=== PATIENT | female | born 1965 | race African-American/Black ===

== ENCOUNTER 2018-12-28 16:14 | Inpatient (IN) | payer OTHER ==
[2018-12-28 20:29] VITALS: BMI 25.6
--- NOTE | 2018-12-28 21:12 | HP ---
CIWA Score - Admission Criteria [facility]ASAS Guidelines: Admission for Medically Managed Detox: Requires at least one of the followin. CIWA greater than 12 2. Seizures within the past 24 hours 3. Delirium tremens within the past 24 hours 4. Hallucinations within the past 24 hours 5. Acute intervention needed for co occurring medical disorder 6. Acute intervention needed for co occurring psychiatric disorder 7. Severe withdrawal that cannot be handled at a lower level of care (continued vomiting, continued diarrhea, abnormal vital signs) requiring intravenous medication and/or fluids 8. Admission ROS S - HPI Chief Complaint: seeking rehab after detox Allergies/Adverse Reactions: Allergies Allergy/AdvReac Type Severity Reaction Status Date / Time No Known Allergies Allergy Verified 12/28/18 20:09 History of Present Illness: 53 Y.O. AA FEMALE REFERRED BY [facility] AFTER COMPLETING ALCOHOL DETOX. CLIENT WAS THERE FOR THE PAST 4 DAYS. DC TODAY HERE FOR REHAB. SHE REPORTS A LONG HX/O ALCOHOL DEPENDENCE. DRINKING DAILY UNTIL 4 DAYS AGO. + [employer], BLACK OUTS,. DENIES SI/ HI/AVH, SEIZURES. REPORTS MOST RECENT CLEAN TIME 6 MONTHS RELAPSING 3 WEEKS AGO. LIVES IN A PENITENTIARY, SSI, DENIES LEGALS Exam Limitations: No Limitations - Ebola screening Have you traveled outside of the country in the last 21 days: No Have you had contact with anyone from an Ebola affected area: No Have you been sick,other than usual withdrawal symptoms: No Do you have a fever: No - Review of Systems Constitutional: Night Sweats EENT: reports: Eye Pain (R/T MIGRAINES), Dental Problems (MISSING TEETH) Respiratory: reports: No Symptoms reported Cardiac: reports: No Symptoms Reported GI: reports: No Symptoms Reported : reports: Frequency, Incontinence, Urgency Musculoskeletal: reports: No Symptoms Reported Integumentary: reports: No Symptoms Reported Neuro: reports: Headache (MIGRAINES), Other (BLACK OUTS) Endocrine: reports: No Symptoms Reported Hematology: reports: Anemia (CHRONIC) Psychiatric: reports: Orientated x3, Anxious Other Systems: Reviewed and Negative Patient History - Patient Medical History Hx Anemia: Yes Hx Asthma: Yes Hx Chronic Obstructive Pulmonary Disease (COPD): Yes Hx Cancer: No Hx Cardiac Disorders: No Hx Congestive Heart Failure: No Hx Hypertension: Yes Hx Hypercholesterolemia: No Hx Pacemaker: No HX Cerebrovascular Accident: No Hx Seizures: No Hx Dementia: No Hx Diabetes: No Hx Gastrointestinal Disorders: No Hx Liver Disease: No Hx Genitourinary Disorders: No Hx Sexually Transmitted Disorders: No Hx Renal Disease (ESRD): No Hx Thyroid Disease: No Hx Human Immunodeficiency Virus (HIV): No Hx Hepatitis C: No Hx Depression: Yes (HX) Hx Suicide Attempt: No Hx Bipolar Disorder: Yes (SCHIZOAFFECTIVE) Hx Schizophrenia: No Other Medical History: ANXIETY - Patient Surgical History Past Surgical History: Yes Hx Hysterectomy: Yes (2010) Anesthesia Reaction: No - PPD History Previous Implant?: Yes Documented Results: Negative w/o proof Implanted On Prior R Admission?: No PPD to be Administered?: Yes - Reproductive History Patient is a Female of Child Bearing Age (11 -55 yrs old): Yes LMP comment: MENAPAUSE Patient : No (NEG [facility]) - Smoking Cessation Smoking history: Current every day smoker Have you smoked in the past 12 months: Yes Aproximately how many cigarettes per day: 20 Cigars Per Day: 0 Hx Chewing Tobacco Use: No Initiated information on smoking cessation: Yes 'Breaking Loose' booklet given: 12/28/18 - Substance & Tx. History Hx Alcohol Use: Yes Hx Substance Use: Yes Substance Use Type: Alcohol Hx Substance Use Treatment: Yes ([facility]) - Substances abused Alcohol Substance route: Oral Frequency: Daily Amount used: $20-$30 Age of first use: 12 Date of last use: 12/24/18 Cocaine Substance route: Smoking Frequency: Daily Amount used: $20 Age of first use: 29 Date of last use: 12/24/18 Admission Physical Exam [facility]HS - Vital Signs Vital Signs: Vital Signs - 24 hr 12/28/18 20:01 Temperature 97.7 F Pulse Rate 123 H Respiratory 20 Rate Blood Pressure 117/76 - Physical General Appearance: Yes: No Apparent Distress, Anxious HEENTM: Yes: EOMI, Normocephalic, Normal Voice, ROSA M, Pharynx Normal, Other ( POOR DENTITION WITH MISSING TEETH) Respiratory: Yes: Chest Non-Tender, Lungs Clear, Normal Breath Sounds, No Respiratory Distress, No Accessory Muscle Use Neck: Yes: No masses,lesions,Nodules, Supple, Trachea in good position Breast: Yes: Breast Exam Deferred Cardiology: Yes: Regular Rhythm, S1, S2, Tachycardia Abdominal: Yes: Normal Bowel Sounds, Non Tender, Soft Genitourinary: Yes: Within Normal Limits Back: Yes: Normal Inspection Musculoskeletal: Yes: full range of Motion, Gait Steady Extremities: Yes: Normal Capillary Refill, Normal Range of Motion, Non-Tender Neurological: Yes: Fully Oriented, Alert, Motor Strength 5/5 Integumentary: Yes: Dry, Warm Lymphatic: Yes: Within Normal Limits - Diagnostic (1) Alcohol dependence, uncomplicated Current Visit: Yes Status: Acute (2) Asthma Current Visit: Yes Status: Acute (3) HTN (hypertension) Current Visit: Yes Status: Acute (4) Nicotine dependence Current Visit: Yes Status: Acute (5) Chronic anemia Current Visit: Yes Status: Acute (6) Substance induced mood disorder Current Visit: Yes Status: Acute Cleared for Admission BHS - Detox or Rehab Detox Regimen/Protocol: Not Applicable Claeared for Rehab Admission: Yes Breathalyzer - Breathalyzer Breathalyzer: 0 Urine Drug Screen - Test Device Lot number: [id number] Expiration date: 08/20/20 - Control Is test valid?: Yes - Results Drug screen NEGATIVE: No Urine drug screen results: BZO-Benzodiazepines Inpatient Rehab Admission - Rehab Decision to Admit Inpatient rehab admission?: Yes - Initial Determination Are CD services needed?: Yes Free of communicable disease: Yes Not in need of hospitalization: Yes - Rehab Admission Criteria Previous failed treatment: Yes Poor recovery environment: Yes Comorbidities: Yes Lacks judgement: No Patient is meeting Inpatient Rehab admission criteria:: Yes
[2018-12-28] MEDS ORDERED: ALBUTEROL SO4 8 GM HFA INHALER IH SCH ×2 (21:15→21:17)
[2018-12-28] MEDS ORDERED: ACETAMINOPHEN 325 MG TABLET (FP) PO PRN (21:16)
[2018-12-28] MEDS ORDERED: MAG HYDROX/AL HYDROX/SIMETH 30 ML UNIT-DOSE CUP PO PRN (21:16)
[2018-12-28] MEDS ORDERED: guaiFENesin 200 MG/10 ML 10 ML UNIT-DOSE CUPS PO PRN (21:16)
[2018-12-28] MEDS ORDERED: MENTHOL/PHENOL 1 EACH UD MM PRN (21:16)
[2018-12-28] MEDS ORDERED: P-EPHED 60MG/TRIPROLIDI 2.5MG TABLET PO PRN (21:16)
[2018-12-28] MEDS ORDERED: MAGNESIUM HYDROX 2400MG/30ML ORAL SUSPENSION 30 ML CUP PO PRN (21:16)
[2018-12-28] MEDS ORDERED: LOPERAMIDE HCL 2 MG CAPSULE PO PRN (21:16)
[2018-12-28] MEDS ORDERED: MAGNESIUM CITRATE 300 ML BOTTLE PO PRN (21:16)
[2018-12-28] MEDS ORDERED: ALBUTEROL SO4 8 GM HFA INHALER IH PRN (21:18)
[2018-12-28] MEDS ORDERED: TUBERCULIN PPD 5 TU/0.1ML VIAL ID ONE (22:32)
[2018-12-28] MEDS: THIAMINE HCL 100 MG TABLET (FP) PO SCH (22:49)
[2018-12-28] MEDS: hydrOXYzine PAMOATE 50 MG CAPSULE (FP) PO PRN (22:49)
[2018-12-28] MEDS: MELATONIN 5 MG TABLETS PO PRN (22:49)
[2018-12-29] MEDS ORDERED: ONDANSETRON *ODT* 4 MG TABLET SL PRN (08:30)
[2018-12-29] MEDS: NICOTINE POLACRILEX 4 MG GUM BUC PRN (08:56)
[2018-12-29] MEDS: NICOTINE 21 MG/24 HOURS TOPICAL PATCH TD SCH (09:15)
[2018-12-29] MEDS: LISINOPRIL 10 MG TABLET (FP) PO SCH (09:15)
[2018-12-29] MEDS: PRENATAL VITAMINS W/ FOLIC ACID TABLET (FP) PO SCH (09:15)
--- NOTE | 2018-12-29 10:52 | CONSULT ---
[facility] Psychiatric Consult - Data Date of interview: 12/29/18 Admission source: [facility] Identifying data: Patient is a 53 year old female, mother of four, unemployed, homeless, and is currently supported by [facility]. This is patient's first admission to rehab at [facility]. Patient admitted to for alcohol and cocaine dependence. Substance Abuse History: Smoking Cessation. Smoking history: Current every day smoker. Have you smoked in the past 12 months: Yes. Aproximately how many cigarettes per day: 20. Cigars Per Day: 0. Hx Chewing Tobacco Use: No. Initiated information on smoking cessation: Yes. 'Breaking Loose' booklet given : 12/28/18. - Substance & Tx. History. Hx Alcohol Use: Yes. Hx Substance Use : Yes. Substance Use Type: Alcohol. Hx Substance Use Treatment: Yes ([facility]). - Substances abused. Alcohol. Substance route: Oral. Frequency : Daily. Amount used: $20-$30. Age of first use: 12. Date of last use: . Cocaine. Substance route: Smoking. Frequency: Daily. Amount used: $ 20. Age of first use: 29. Date of last use: 12/24/18 Medical History: Anemia, Asthma, Hypertension, Hysterectomy Psychiatric History: Patient's first psychiatric contact was as a child due to behavior disturbances. She was diagnosed with ADHD and prescribed Ritalin. As an adult Ms. Solitario reports history of multiple psychiatric hospitalizations. Her first hospitalization occured at 25 years of age while living in [place] after feeling depressed secondary to her divorce. She was admitted to [facility] and diagnosed with Bipolar disorder. Reports being tried on lithium, risperdal, wellbutrin, prozac and seroquel. Approximately 1-2 years after her first psychiatric admission she was admitted again to [facility] secondary to attempting to drown herself in a bathtub. Her diagnosis was revised to Schizoaffective disorder and reports being prescribed prozac + seroquel. She reports subsequent admissions but is unable to recall specific dates. Ms. Solitario's most recent psychiatric hospitalization was at [facility] in January of 2018 after attempting to jump in front of a train and reports being prescribed risperdal, depakote, and trazodone. States that risperdal causes her to grind her teeth and is noncompliant with depakote. She denies current outpatient psychiatric care. Reports receiving psychotropic medications from emergency rooms in [facility], most recently seroquel 100mg HS+ Seroquel 25mg daily. Patient denies auditory/visual hallucinations and suicidal/ homicidal ideation. At present patient is restless, talkative but in good control. Physical/Sexual Abuse/Trauma History: history of trauma but refuses to elaborate. Mental Status Exam - Mental Status Exam Alert and Oriented to: Time, Place, Person Cognitive Function: Good Patient Appearance: Well Groomed Mood: Euthymic Affect: Mood Congruent Patient Behavior: Cooperative Speech Pattern: Clear (Patient is talktative) Voice Loudness: Normal Thought Process: Goal Oriented Thought Disorder: Not Present Hallucinations: Denies Suicidal Ideation: Denies Homicidal Ideation: Denies Insight/Judgement: Poor Sleep: Poorly Appetite: Fair Muscle strength/Tone: Normal Gait/Station: Normal Psychiatric Findings - Problem List (Flat Top 1, 2,3) (1) Bipolar disorder Current Visit: Yes Status: Chronic (2) Alcohol dependence, uncomplicated Current Visit: Yes Status: Acute (3) Nicotine dependence Current Visit: Yes Status: Acute (4) Substance-induced sleep disorder Current Visit: Yes Status: Acute - Initial Treatment Plan Initial Treatment Plan: Psychoeducation provided. Rehab in progress. Valeriano Islas contacted at [phone] and Dedirck Houser contacted at [phone] and able to speak to pharmacist at both pharmacies. As per pharmacist from both locations patient does not have psychotropic medications on file. Will order Seroquel 100mg HS. Benefits and side effects discussed. Verbal consent given.
[2018-12-29 11:57] LABS: URINE APPEARANCE CLEAR; URINE BILIRUBIN NEGATIVE (NEGATIVE); URINE COLOR YELLOW; URINE GLUCOSE (UA) NEGATIVE (NEGATIVE); URINE KETONE NEGATIVE (NEGATIVE); URINE LEUK ESTERASE NEGATIVE (NEGATIVE); URINE NITRITE NEGATIVE (NEGATIVE); URINE PROTEIN NEGATIVE (NEGATIVE); URINE UROBILINOGEN 0.2 mg/dL (0.2-1.0)
[2018-12-29 12:27] LABS: HEMATOCRIT 34.1 % (32.4-45.2); HEMOGLOBIN 10.9 GM/dL (10.7-15.3); MCHC 32.1 g/dl (32.0-36.0); MEAN CELL VOLUME 77.6 fl (80-96); MEAN PLT VOLUME 9.4 fl (7.5-11.1); PLATELET COUNT 294 K/MM3 (134-434); RBC 4.39 M/mm3 (3.60-5.2); RDW 14.9 % (11.6-15.6); WHITE BLOOD COUNT 4.7 K/mm3 (4.0-10.0)
[2018-12-29 12:33] LABS: ALBUMIN 4.1 g/dl (3.4-5.0); BILIRUBIN,TOTAL 0.2 mg/dL (0.2-1); BLOOD UREA NITROGEN 21.8 mg/dL (7-18); CALCIUM 9.7 mg/dL (8.5-10.1); CREATININE 0.9 mg/dL (0.55-1.3); POTASSIUM 4.3 mmol/L (3.5-5.1)
[2018-12-29] MEDS: hydrOXYzine PAMOATE 50 MG CAPSULE (FP) PO PRN (13:29)
--- NOTE | 2018-12-29 13:35 | EKG ---
Test Reason : Blood Pressure : / mmHG Vent. Rate : 097 BPM Atrial Rate : 097 BPM P-R Int : 136 ms QRS Dur : 078 ms QT Int : 340 ms P-R-T Axes : 076 066 070 degrees QTc Int : 431 ms NORMAL SINUS RHYTHM POSSIBLE LEFT ATRIAL ENLARGEMENT POOR R WAVE PROGRESSION NO PREVIOUS ECGS AVAILABLE Confirmed by DINESH LAW MD ([id number]) on 12/29/2018 1:34:45 PM Referred By: Confirmed By:DINESH LAW MD
[2018-12-29] MEDS: MELATONIN 5 MG TABLETS PO PRN (21:57)
[2018-12-29] MEDS: QUEtiapine FUMARATE 100 MG TABLET (FP) PO SCH (21:57)
[2018-12-29] MEDS: THIAMINE HCL 100 MG TABLET (FP) PO SCH (21:57)
[2018-12-30] MEDS: PRENATAL VITAMINS W/ FOLIC ACID TABLET (FP) PO SCH (10:09)
[2018-12-30] MEDS: LISINOPRIL 10 MG TABLET (FP) PO SCH (10:09)
[2018-12-30] MEDS: NICOTINE POLACRILEX 4 MG GUM BUC PRN (10:10)
[2018-12-30] MEDS: NICOTINE 21 MG/24 HOURS TOPICAL PATCH TD SCH (10:10)
[2018-12-30] MEDS: hydrOXYzine PAMOATE 50 MG CAPSULE (FP) PO PRN (10:11)
[2018-12-30] MEDS: MELATONIN 5 MG TABLETS PO PRN (21:19)
[2018-12-30] MEDS: THIAMINE HCL 100 MG TABLET (FP) PO SCH (21:19)
[2018-12-30] MEDS: QUEtiapine FUMARATE 100 MG TABLET (FP) PO SCH (21:19)
[2018-12-31] MEDS: NICOTINE POLACRILEX 4 MG GUM BUC PRN (08:30)
[2018-12-31] MEDS: LISINOPRIL 10 MG TABLET (FP) PO SCH (10:08)
[2018-12-31] MEDS: PRENATAL VITAMINS W/ FOLIC ACID TABLET (FP) PO SCH (10:08)
[2018-12-31] MEDS: NICOTINE 21 MG/24 HOURS TOPICAL PATCH TD SCH (10:08)
[2018-12-31] MEDS: hydrOXYzine PAMOATE 50 MG CAPSULE (FP) PO PRN ×3 (10:10→21:10)
[2018-12-31] MEDS: IBUPROFEN 400 MG TABLET (FP) PO PRN (18:03)
[2018-12-31] MEDS: THIAMINE HCL 100 MG TABLET (FP) PO SCH (21:10)
[2018-12-31] MEDS: QUEtiapine FUMARATE 100 MG TABLET (FP) PO SCH (21:10)
[2018-12-31] MEDS: MELATONIN 5 MG TABLETS PO PRN (21:10)
[2019-01-01] MEDS: NICOTINE 21 MG/24 HOURS TOPICAL PATCH TD SCH (10:06)
[2019-01-01] MEDS: LISINOPRIL 10 MG TABLET (FP) PO SCH (10:06)
[2019-01-01] MEDS: PRENATAL VITAMINS W/ FOLIC ACID TABLET (FP) PO SCH (10:06)
[2019-01-01] MEDS: NICOTINE POLACRILEX 4 MG GUM BUC PRN (10:07)
[2019-01-01] MEDS: IBUPROFEN 400 MG TABLET (FP) PO PRN ×2 (12:55→21:47)
--- NOTE | 2019-01-01 14:14 | PN ---
[facility] Progress Note Note: PATIENT C/O BRUISE TO LEFT FOREARM. STATES SHE HAS MILD DISCOMFORT 04/30, NON- RADIATING. NO RECENT INJURIES. Vital Signs Temperature 97.9 F 01/01/19 07:30 Pulse Rate 97 H 01/01/19 07:30 Respiratory Rate 18 01/01/19 07:30 Blood Pressure 145/85 01/01/19 07:30 O2 Sat by Pulse Oximetry (%) Laboratory Tests 12/29/18 12/29/18 12/29/18 08:20 08:25 08:25 WBC 4.7 RBC 4.39 Hgb 10.9 Hct 34.1 MCV 77.6 L MCH 25.0 L MCHC 32.1 RDW 14.9 Plt Count 294 MPV 9.4 Sodium 136 Potassium 4.3 Chloride 98 Carbon Dioxide 34 H Anion Gap 5 L BUN 21.8 H Creatinine 0.9 Est GFR (CKD-EPI)AfAm 83.43 Est GFR (CKD-EPI)NonAf 71.98 Random Glucose 110 H Calcium 9.7 Total Bilirubin 0.2 AST 14 L ALT 18 Alkaline Phosphatase 65 Total Protein 8.0 Albumin 4.1 Urine Color Yellow Urine Appearance Clear Urine pH 7.0 Ur Specific [place] 1.020 Urine Protein Negative Urine Glucose (UA) Negative Urine Ketones Negative Urine Blood Negative Urine Nitrite Negative Urine Bilirubin Negative Urine Urobilinogen 0.2 Ur Leukocyte Esterase Negative RPR Titer 12/29/18 08:25 WBC RBC Hgb Hct MCV MCH MCHC RDW Plt Count MPV Sodium Potassium Chloride Carbon Dioxide Anion Gap BUN Creatinine Est GFR (CKD-EPI)AfAm Est GFR (CKD-EPI)NonAf Random Glucose Calcium Total Bilirubin AST ALT Alkaline Phosphatase Total Protein Albumin Urine Color Urine Appearance Urine pH Ur Specific [place] Urine Protein Urine Glucose (UA) Urine Ketones Urine Blood Urine Nitrite Urine Bilirubin Urine Urobilinogen Ur Leukocyte Esterase RPR Titer Nonreactive PE: ALERT AND ORIENTED X 3 SKIN WARM AND DRY +PERRLA, EOMS INTACT BL EXT FULL ROM, AMB AD JEF B/L UES FULL ROM, LEFT RADIAL PULSE + LEFT FINGERS WITH BRISK CAP REFILL +ROM OF LEFT ARM A/P; ECCHYMOSIS TO LEFT FOREARM CONTINUE IBU PRN FOR DISCOMFORT MONITOR CLINICALLY IF PAIN CONTINUES, DO XRAY
[2019-01-01] MEDS: QUEtiapine FUMARATE 100 MG TABLET (FP) PO SCH (21:46)
[2019-01-01] MEDS: THIAMINE HCL 100 MG TABLET (FP) PO SCH (21:46)
[2019-01-01] MEDS: hydrOXYzine PAMOATE 50 MG CAPSULE (FP) PO PRN (21:46)
[2019-01-02] MEDS: hydrOXYzine PAMOATE 50 MG CAPSULE (FP) PO PRN ×2 (10:16→21:49)
[2019-01-02] MEDS: NICOTINE 21 MG/24 HOURS TOPICAL PATCH TD SCH (10:16)
[2019-01-02] MEDS: PRENATAL VITAMINS W/ FOLIC ACID TABLET (FP) PO SCH (10:16)
[2019-01-02] MEDS: LISINOPRIL 10 MG TABLET (FP) PO SCH (10:16)
[2019-01-02] MEDS: IBUPROFEN 400 MG TABLET (FP) PO PRN ×2 (10:17→21:48)
[2019-01-02] MEDS: THIAMINE HCL 100 MG TABLET (FP) PO SCH (21:49)
[2019-01-02] MEDS: QUEtiapine FUMARATE 100 MG TABLET (FP) PO SCH (21:49)
[2019-01-03] MEDS: LISINOPRIL 10 MG TABLET (FP) PO SCH (09:36)
[2019-01-03] MEDS: NICOTINE 21 MG/24 HOURS TOPICAL PATCH TD SCH (09:36)
[2019-01-03] MEDS: PRENATAL VITAMINS W/ FOLIC ACID TABLET (FP) PO SCH (09:36)
[2019-01-03] MEDS: hydrOXYzine PAMOATE 50 MG CAPSULE (FP) PO PRN (09:37)
[2019-01-03] MEDS ORDERED: DOCUSATE SODIUM 100 MG CAPSULE (FP) PO ONE (11:00)
--- NOTE | 2019-01-03 11:03 | PN ---
[facility] Progress Note Note: c/o hard stool and requesting stool softner. Vital Signs - 24 hr 01/03/19 01/03/19 01/03/19 00:30 03:30 07:18 Temperature 97.3 F L Pulse Rate 80 Respiratory 16 16 18 Rate Blood Pressure 129/80 01/03/19 09:36 Temperature Pulse Rate 90 Respiratory Rate Blood Pressure 134/77 Laboratory Tests 12/28/18 12/29/18 12/29/18 20:43 08:20 08:25 WBC 4.7 RBC 4.39 Hgb 10.9 Hct 34.1 MCV 77.6 L MCH 25.0 L MCHC 32.1 RDW 14.9 Plt Count 294 MPV 9.4 Sodium Potassium Chloride Carbon Dioxide Anion Gap BUN Creatinine Est GFR (CKD-EPI)AfAm Est GFR (CKD-EPI)NonAf Random Glucose Calcium Total Bilirubin AST ALT Alkaline Phosphatase Total Protein Albumin Urine Color Yellow Urine Appearance Clear Urine pH 7.0 Ur Specific [place] 1.020 Urine Protein Negative Urine Glucose (UA) Negative Urine Ketones Negative Urine Blood Negative Urine Nitrite Negative Urine Bilirubin Negative Urine Urobilinogen 0.2 Ur Leukocyte Esterase Negative POC Urine HCG, Qual Negative RPR Titer 12/29/18 12/29/18 08:25 08:25 WBC RBC Hgb Hct MCV MCH MCHC RDW Plt Count MPV Sodium 136 Potassium 4.3 Chloride 98 Carbon Dioxide 34 H Anion Gap 5 L BUN 21.8 H Creatinine 0.9 Est GFR (CKD-EPI)AfAm 83.43 Est GFR (CKD-EPI)NonAf 71.98 Random Glucose 110 H Calcium 9.7 Total Bilirubin 0.2 AST 14 L ALT 18 Alkaline Phosphatase 65 Total Protein 8.0 Albumin 4.1 Urine Color Urine Appearance Urine pH Ur Specific [place] Urine Protein Urine Glucose (UA) Urine Ketones Urine Blood Urine Nitrite Urine Bilirubin Urine Urobilinogen Ur Leukocyte Esterase POC Urine HCG, Qual RPR Titer Nonreactive labs noted. Low H/H A/P Hx Anemia constipation Alert o x 3 nad oob ambulating with steady gait Increase po fluids colace 100 mg po tid feosol 325 mg po daily D/w pt to report to staff if constipation persists. will order dulcolax
[2019-01-03] MEDS: FERROUS SO4 325 MG TABLET (FP) PO SCH (12:32)
[2019-01-03] MEDS: DOCUSATE SODIUM 100 MG CAPSULE (FP) PO SCH ×2 (13:47→21:38)
[2019-01-03] MEDS ORDERED: COLLOIDAL OATMEAL 1 BAR EACH TP PRN (14:50)
[2019-01-03] MEDS: MELATONIN 5 MG TABLETS PO PRN (21:37)
[2019-01-03] MEDS: THIAMINE HCL 100 MG TABLET (FP) PO SCH (21:37)
[2019-01-03] MEDS: QUEtiapine FUMARATE 100 MG TABLET (FP) PO SCH (21:38)
[2019-01-04] MEDS: DOCUSATE SODIUM 100 MG CAPSULE (FP) PO SCH ×2 (06:35→21:22)
[2019-01-04] MEDS: FERROUS SO4 325 MG TABLET (FP) PO SCH (10:09)
[2019-01-04] MEDS: PRENATAL VITAMINS W/ FOLIC ACID TABLET (FP) PO SCH (10:09)
[2019-01-04] MEDS: NICOTINE 21 MG/24 HOURS TOPICAL PATCH TD SCH (10:09)
[2019-01-04] MEDS: LISINOPRIL 10 MG TABLET (FP) PO SCH (10:09)
[2019-01-04] MEDS: NICOTINE POLACRILEX 4 MG GUM BUC PRN ×2 (10:10→17:01)
[2019-01-04] MEDS: QUEtiapine FUMARATE 100 MG TABLET (FP) PO SCH (21:21)
[2019-01-04] MEDS: THIAMINE HCL 100 MG TABLET (FP) PO SCH (21:21)
[2019-01-04] MEDS: hydrOXYzine PAMOATE 50 MG CAPSULE (FP) PO PRN (21:21)
[2019-01-05] MEDS: LISINOPRIL 10 MG TABLET (FP) PO SCH (10:08)
[2019-01-05] MEDS: FERROUS SO4 325 MG TABLET (FP) PO SCH (10:08)
[2019-01-05] MEDS: PRENATAL VITAMINS W/ FOLIC ACID TABLET (FP) PO SCH (10:08)
[2019-01-05] MEDS: NICOTINE 21 MG/24 HOURS TOPICAL PATCH TD SCH (10:09)
[2019-01-05] MEDS: hydrOXYzine PAMOATE 50 MG CAPSULE (FP) PO PRN (21:15)
[2019-01-05] MEDS: THIAMINE HCL 100 MG TABLET (FP) PO SCH (21:15)
[2019-01-05] MEDS: DOCUSATE SODIUM 100 MG CAPSULE (FP) PO SCH (21:15)
[2019-01-05] MEDS: MELATONIN 5 MG TABLETS PO PRN (21:15)
[2019-01-05] MEDS: QUEtiapine FUMARATE 100 MG TABLET (FP) PO SCH (21:15)
[2019-01-06 07:08] VITALS: TEMP 97.9
[2019-01-06 09:12] VITALS: BP 123/85; PULSE 106
[2019-01-06] MEDS: LISINOPRIL 10 MG TABLET (FP) PO SCH (10:05)
[2019-01-06] MEDS: FERROUS SO4 325 MG TABLET (FP) PO SCH (10:05)
[2019-01-06] MEDS: NICOTINE 21 MG/24 HOURS TOPICAL PATCH TD SCH (10:06)
[2019-01-06] MEDS: PRENATAL VITAMINS W/ FOLIC ACID TABLET (FP) PO SCH (10:06)
[2019-01-06] MEDS: NICOTINE POLACRILEX 4 MG GUM BUC PRN (10:06)
--- NOTE | 2019-01-06 15:21 | DS ---
[facility] Rehab Discharge Summary - [facility] Rehab Discharge Summary Admission Date: 12/28/18 Discharge Date: 01/06/19 - Discharge Physical Exam Vital Signs: Vital Signs Temperature 97.9 F 01/06/19 07:08 Pulse Rate 106 H 01/06/19 09:12 Respiratory Rate 18 01/06/19 09:12 Blood Pressure 123/85 01/06/19 09:12 O2 Sat by Pulse Oximetry (%) Pertinent Admission Physical Exam Findings: Laboratory Last Values WBC 4.7 K/mm3 (4.0-10.0) 12/29/18 08:25 RBC 4.39 M/mm3 (3.60-5.2) 12/29/18 08:25 Hgb 10.9 GM/dL (10.7-15.3) 12/29/18 08:25 Hct 34.1 % (32.4-45.2) 12/29/18 08:25 MCV 77.6 fl (80-96) L 12/29/18 08:25 MCH 25.0 pg (25.7-33.7) L 12/29/18 08:25 MCHC 32.1 g/dl (32.0-36.0) 12/29/18 08:25 RDW 14.9 % (11.6-15.6) 12/29/18 08:25 Plt Count 294 K/MM3 (134-434) 12/29/18 08:25 MPV 9.4 fl (7.5-11.1) 12/29/18 08:25 Sodium 136 mmol/L (136-145) 12/29/18 08:25 Potassium 4.3 mmol/L (3.5-5.1) 12/29/18 08:25 Chloride 98 mmol/L (98-107) 12/29/18 08:25 Carbon Dioxide 34 mmol/L (21-32) H 12/29/18 08:25 Anion Gap 5 MMOL/L (8-16) L 12/29/18 08:25 BUN 21.8 mg/dL (7-18) H 12/29/18 08:25 Creatinine 0.9 mg/dL (0.55-1.3) 12/29/18 08:25 Est GFR (CKD-EPI)AfAm 83.43 12/29/18 08:25 Est GFR (CKD-EPI)NonAf 71.98 11/08/19 08:25 Random Glucose 110 mg/dL (74-106) H 12/29/18 08:25 Calcium 9.7 mg/dL (8.5-10.1) 12/29/18 08:25 Total Bilirubin 0.2 mg/dL (0.2-1) 12/29/18 08:25 AST 14 U/L (15-37) L 12/29/18 08:25 ALT 18 U/L (13-61) 12/29/18 08:25 Alkaline Phosphatase 65 U/L (45-117) 12/29/18 08:25 Total Protein 8.0 g/dl (6.4-8.2) 12/29/18 08:25 Albumin 4.1 g/dl (3.4-5.0) 12/29/18 08:25 Urine Color Yellow 12/29/18 08:20 Urine Appearance Clear 12/29/18 08:20 Urine pH 7.0 (5.0-8.0) 12/29/18 08:20 Ur Specific [place] 1.020 (1.010-1.035) 12/29/18 08:20 Urine Protein Negative (NEGATIVE) 12/29/18 08:20 Urine Glucose (UA) Negative (NEGATIVE) 12/29/18 08:20 Urine Ketones Negative (NEGATIVE) 12/29/18 08:20 Urine Blood Negative (NEGATIVE) 12/29/18 08:20 Urine Nitrite Negative (NEGATIVE) 12/29/18 08:20 Urine Bilirubin Negative (NEGATIVE) 12/29/18 08:20 Urine Urobilinogen 0.2 mg/dL (0.2-1.0) 12/29/18 08:20 Ur Leukocyte Esterase Negative (NEGATIVE) 12/29/18 08:20 POC Urine HCG, Qual Negative 12/28/18 20:43 RPR Titer Nonreactive (NONREACTIVE) 12/29/18 08:25 - Medication Discharge Medications: Ambulatory Orders Albuterol Sulfate Inhaler - [Ventolin Hfa Inhaler -] 1 - 2 inh PO Q4H 12/28/18 Lisinopril 10 mg PO DAILY 12/28/18 Quetiapine Fumarate [Seroquel -] 100 mg PO BID 12/28/18 - Medication-Assisted Treatment (MAT) Medication-Assisted Treatment (MAT): No - Discharge Instructions Diet, activity, other medical instructions: Diet: Activity: Other medical instructions: - Diagnosis (1) Alcohol dependence, uncomplicated Status: Acute (2) Asthma Status: Acute (3) Chronic anemia Status: Acute (4) HTN (hypertension) Status: Acute (5) Nicotine dependence Status: Acute - Follow-up Referral Minutes to complete discharge: 30 - AMA Did Patient Leave Against Medical Advice: No
== END 2019-01-06 15:30 | disposition home or self-care (01) | DRG 772 ==
LOC: YASAS 16:14 → Y3E 21:40
PROVIDERS: ADMIT Neuromusculoskeletal Medicine & OMM; ATTEND Neuromusculoskeletal Medicine & OMM
PROC: HZ42ZZZ Group Counseling for Substance Abuse Treatment, Cognitive-Behavioral (ICD-10-PCS; principal; 2018-12-28)
DX: F10.20 Alcohol dependence, uncomplicated (principal); F14.20 Cocaine dependence, uncomplicated; F17.210 Nicotine dependence, cigarettes, uncomplicated; F25.9 Schizoaffective disorder, unspecified; F19.282 Other psychoactive substance dependence with psychoactive substance-induced sleep disorder; F19.24 Other psychoactive substance dependence with psychoactive substance-induced mood disorder; F31.9 Bipolar disorder, unspecified; F41.9 Anxiety disorder, unspecified; I10 Essential (primary) hypertension; J45.909 Unspecified asthma, uncomplicated; D64.9 Anemia, unspecified; K59.00 Constipation, unspecified; S50.12XA Contusion of left forearm, initial encounter; X58.XXXA Exposure to other specified factors, initial encounter; Y93.89 Activity, other specified; Y92.89 Other specified places as the place of occurrence of the external cause; Y99.8 Other external cause status; Z59.0 Homelessness
CPT/HCPCS: 36415; 80053; 81003; 81025; 85027; 86593; 93005; 93010; Q0162

== ENCOUNTER 2022-05-19 09:51 | Inpatient (IN) | payer OTHER ==
[2022-05-19 10:12] VITALS: BMI 19.2
[2022-05-19] MEDS ORDERED: NICOTINE 10 MG CARTRIDGE (INHALER) IH PRN (11:01)
[2022-05-19] MEDS ORDERED: guaiFENesin 600 MG TABLET.ER (FP) PO PRN (11:01)
[2022-05-19] MEDS ORDERED: BENZOCAINE/MENTHOL (CHLORASEPTIC ) LOZENGE MM PRN (11:01)
[2022-05-19] MEDS ORDERED: IBUPROFEN 600 MG TABLET (FP) PO PRN (11:01)
[2022-05-19] MEDS ORDERED: NICOTINE POLACRILEX 4 MG GUM BUC PRN (11:01)
[2022-05-19] MEDS ORDERED: NALOXONE HCL (KLOXXADO) 8 MG SPRAY NS PRN (11:01)
[2022-05-19] MEDS ORDERED: LOPERAMIDE HCL 2 MG CAPSULE PO PRN (11:01)
[2022-05-19] MEDS ORDERED: MAG HYDROX/AL HYDROX/SIMETH 30 ML UNIT-DOSE CUP PO PRN (11:01)
[2022-05-19] MEDS ORDERED: ACETAMINOPHEN 325 MG TABLET (FP) PO PRN (11:01)
[2022-05-19] MEDS ORDERED: POLYETHYLENE GLYCOL (HEALTHYLAX) 3350 17 GM PACKET PO PRN (11:01)
[2022-05-19] MEDS ORDERED: IBUPROFEN 400 MG TABLET (FP) PO PRN (11:01)
[2022-05-19] MEDS ORDERED: NALOXONE HCL 0.4 MG/ML VIAL IM PRN (11:01)
[2022-05-19] MEDS ORDERED: MAGNESIUM HYDROX 2400MG/30ML ORAL SUSPENSION 30 ML CUP PO PRN (11:01)
[2022-05-19] MEDS ORDERED: BENZONATATE 200 MG CAPSULE PO PRN (11:01)
[2022-05-19 14:43] LABS: ALBUMIN 3.6 g/dl (3.4-5.0); CALCIUM 9.3 mg/dL (8.5-10.1)
[2022-05-19 14:44] LABS: BLOOD UREA NITROGEN 31.3 mg/dL (7-18)
[2022-05-19 14:46] LABS: CREATININE 1.1 mg/dL (0.55-1.3); TOT PROT 7.7 g/dl (6.4-8.2)
[2022-05-19 14:50] LABS: BILIRUBIN,TOTAL 0.4 mg/dL (0.2-1)
[2022-05-19 14:56] LABS: SYPHILIS W/ RPR CONF NON-REACTIVE (NONREACTIVE)
[2022-05-19 15:26] LABS: HIV INTERPRETATION NEGATIVE (NEGATIVE)
[2022-05-19 17:07] LABS: HEMATOCRIT 34.9 % (32.4-45.2); HEMOGLOBIN 11.1 GM/dL (10.7-15.3); MCH 24.7 pg (25.7-33.7); MCHC 31.7 g/dl (32.0-36.0); MEAN CELL VOLUME 77.7 fl (80-96); PLATELET COUNT 279 10^3/uL (134-434); RBC 4.49 M/mm3 (3.60-5.2); RDW 15.7 % (11.6-15.6)
[2022-05-19] MEDS ORDERED: LISINOPRIL 10 MG TABLET PO ONE (17:53)
[2022-05-19] MEDS: ALBUTEROL SO4 HFA INHALER IH PRN (18:02)
[2022-05-19] MEDS: hydrOXYzine PAMOATE 25 MG CAPSULE (FP) PO PRN (21:22)
[2022-05-19] MEDS: THIAMINE HCL 100 MG TABLET (FP) PO SCH (21:22)
[2022-05-19] MEDS ORDERED: MELATONIN 5 MG TABLETS PO SCH (22:00)
[2022-05-20] MEDS: PRENATAL VITAMINS W/ FOLIC ACID TABLET (FP) PO SCH (10:03)
[2022-05-20] MEDS: ALBUTEROL SO4 HFA INHALER IH PRN ×2 (11:13→21:32)
[2022-05-20] MEDS: THIAMINE HCL 100 MG TABLET (FP) PO SCH (21:32)
[2022-05-20] MEDS: QUEtiapine FUMARATE 200 MG TABLET PO SCH (21:32)
[2022-05-21] MEDS: PRENATAL VITAMINS W/ FOLIC ACID TABLET (FP) PO SCH (10:32)
[2022-05-21] MEDS ORDERED: LISINOPRIL 20 MG TABLET PO ONE (10:45)
[2022-05-21 14:27] LABS: PH,URINE 5.5 (5.0-8.0); URINE APPEARANCE CLEAR; URINE BILIRUBIN NEGATIVE (NEGATIVE); URINE COLOR YELLOW; URINE GLUCOSE (UA) NEGATIVE (NEGATIVE); URINE KETONE NEGATIVE (NEGATIVE); URINE LEUK ESTERASE NEGATIVE (NEGATIVE); URINE NITRITE NEGATIVE (NEGATIVE); URINE PROTEIN NEGATIVE (NEGATIVE); URINE UROBILINOGEN 0.2 mg/dL (0.2-1.0)
[2022-05-21] MEDS: ALBUTEROL SO4 HFA INHALER IH PRN (19:58)
[2022-05-21] MEDS: QUEtiapine FUMARATE 200 MG TABLET PO SCH (21:09)
[2022-05-21] MEDS: THIAMINE HCL 100 MG TABLET (FP) PO SCH (21:09)
[2022-05-21] MEDS: hydrOXYzine PAMOATE 25 MG CAPSULE (FP) PO PRN (21:09)
[2022-05-22] MEDS: hydrOXYzine PAMOATE 25 MG CAPSULE (FP) PO PRN (06:37)
[2022-05-22] MEDS: PRENATAL VITAMINS W/ FOLIC ACID TABLET (FP) PO SCH (10:46)
[2022-05-22] MEDS: LISINOPRIL 10 MG TABLET PO SCH (14:58)
[2022-05-22] MEDS: ALBUTEROL SO4 HFA INHALER IH PRN (18:22)
[2022-05-22] MEDS: THIAMINE HCL 100 MG TABLET (FP) PO SCH (22:08)
[2022-05-22] MEDS: QUEtiapine FUMARATE 200 MG TABLET PO SCH (22:08)
[2022-05-23] MEDS: hydrOXYzine PAMOATE 25 MG CAPSULE (FP) PO PRN (06:43)
[2022-05-23] MEDS: ALBUTEROL SO4 HFA INHALER IH PRN ×3 (06:44→21:43)
[2022-05-23] MEDS: PRENATAL VITAMINS W/ FOLIC ACID TABLET (FP) PO SCH (09:47)
[2022-05-23] MEDS: LISINOPRIL 10 MG TABLET PO SCH (09:47)
[2022-05-23] MEDS: THIAMINE HCL 100 MG TABLET (FP) PO SCH (21:40)
[2022-05-23] MEDS: QUEtiapine FUMARATE 200 MG TABLET PO SCH (21:40)
[2022-05-24] MEDS: ALBUTEROL SO4 HFA INHALER IH PRN (07:05)
[2022-05-24] MEDS: PRENATAL VITAMINS W/ FOLIC ACID TABLET (FP) PO SCH (09:57)
[2022-05-24] MEDS ORDERED: LISINOPRIL 20 MG TABLET PO SCH (10:00)
[2022-05-24] MEDS: LISINOPRIL 10 MG TABLET PO SCH (10:16)
[2022-05-24 17:19] VITALS: BP 131/76; PULSE 108; RESP 17; TEMP 97.9
[2022-05-24] MEDS ORDERED: GABAPENTIN 300 MG CAPSULE PO SCH (22:00)
== END 2022-05-24 17:25 | disposition home or self-care (01) | DRG 772 ==
LOC: YASAS 09:51 → Y5N 12:48
PROVIDERS: ADMIT Allergy & Immunology; ATTEND Psychiatry & Neurology Pain Medicine
PROC: HZ42ZZZ Group Counseling for Substance Abuse Treatment, Cognitive-Behavioral (ICD-10-PCS; principal; 2022-05-19)
DX: F10.20 Alcohol dependence, uncomplicated (principal); F14.20 Cocaine dependence, uncomplicated; F17.210 Nicotine dependence, cigarettes, uncomplicated; F31.9 Bipolar disorder, unspecified; F19.282 Other psychoactive substance dependence with psychoactive substance-induced sleep disorder; F19.24 Other psychoactive substance dependence with psychoactive substance-induced mood disorder; I10 Essential (primary) hypertension; J44.9 Chronic obstructive pulmonary disease, unspecified; R32 Unspecified urinary incontinence; Z62.810 Personal history of physical and sexual abuse in childhood; Z91.410 Personal history of adult physical and sexual abuse; Z56.0 Unemployment, unspecified; Z59.00 Homelessness unspecified
CPT/HCPCS: 36415; 80053; 81003; 85027; 86780; 86803; 87389; 87491; 87591; C9803-CS; U0003; U0005

== ENCOUNTER 2022-08-18 20:45 | Inpatient (IN) | payer OTHER ==
[2022-08-18 21:29] VITALS: RESP 18; BMI 20.2
[2022-08-18] MEDS ORDERED: MAGNESIUM HYDROX 2400MG/30ML ORAL SUSPENSION 30 ML CUP PO PRN (22:00)
[2022-08-18] MEDS ORDERED: BENZONATATE 200 MG CAPSULE PO PRN (22:00)
[2022-08-18] MEDS ORDERED: MAG HYDROX/AL HYDROX/SIMETH 30 ML UNIT-DOSE CUP PO PRN (22:00)
[2022-08-18] MEDS ORDERED: AMMONIUM LACTATE 12% LOTION 225 GM BOTTLE TP PRN (22:00)
[2022-08-18] MEDS ORDERED: P-EPHED 60MG/TRIPROLIDI 2.5MG TABLET PO PRN (22:00)
[2022-08-18] MEDS ORDERED: NICOTINE POLACRILEX 2 MG GUM BUC PRN (22:00)
[2022-08-18] MEDS ORDERED: POLYETHYLENE GLYCOL (HEALTHYLAX) 3350 17 GM PACKET PO PRN (22:00)
[2022-08-18] MEDS ORDERED: ACETAMINOPHEN 325 MG TABLET (FP) PO PRN (22:00)
[2022-08-18] MEDS ORDERED: NICOTINE 10 MG CARTRIDGE (INHALER) IH PRN (22:00)
[2022-08-18] MEDS ORDERED: LOPERAMIDE HCL 2 MG CAPSULE PO PRN (22:00)
[2022-08-18] MEDS ORDERED: COLLOIDAL OATMEAL 1 BAR EACH TP PRN (22:00)
[2022-08-18] MEDS ORDERED: BENZOCAINE/MENTHOL (CHLORASEPTIC ) LOZENGE MM PRN (22:00)
[2022-08-18] MEDS ORDERED: IBUPROFEN 400 MG TABLET (FP) PO PRN (22:00)
[2022-08-18] MEDS ORDERED: guaiFENesin 600 MG TABLET.ER (FP) PO PRN (22:00)
[2022-08-18] MEDS ORDERED: METOPROLOL TARTRATE 25 MG TABLET (FP) PO ONE (22:02)
[2022-08-18] MEDS: MELATONIN 5 MG TABLETS PO SCH (23:46)
[2022-08-18] MEDS: THIAMINE HCL 100 MG TABLET (FP) PO SCH (23:46)
[2022-08-18] MEDS: hydrOXYzine PAMOATE 25 MG CAPSULE (FP) PO PRN (23:46)
[2022-08-18] MEDS: IBUPROFEN 600 MG TABLET (FP) PO PRN (23:48)
[2022-08-19 01:31] LABS: PH,URINE 5.5 (5.0-8.0); URINE APPEARANCE CLEAR; URINE BILIRUBIN NEGATIVE (NEGATIVE); URINE COLOR YELLOW; URINE GLUCOSE (UA) NEGATIVE (NEGATIVE); URINE KETONE NEGATIVE (NEGATIVE); URINE LEUK ESTERASE NEGATIVE (NEGATIVE); URINE NITRITE NEGATIVE (NEGATIVE); URINE PROTEIN NEGATIVE (NEGATIVE)
[2022-08-19] MEDS: hydrOXYzine PAMOATE 25 MG CAPSULE (FP) PO PRN (07:00)
[2022-08-19] MEDS: PRENATAL VITAMINS W/ FOLIC ACID TABLET (FP) PO SCH (09:43)
[2022-08-19] MEDS: LISINOPRIL 20 MG TABLET PO SCH (10:26)
[2022-08-19] MEDS: risperiDONE 1 MG TABLET PO SCH ×2 (10:26→21:30)
[2022-08-19 11:53] LABS: HEMATOCRIT 33.5 % (32.4-45.2); HEMOGLOBIN 10.4 GM/dL (10.7-15.3); MCH 24.7 pg (25.7-33.7); MCHC 31.1 g/dl (32.0-36.0); MEAN CELL VOLUME 79.2 fl (80-96); MEAN PLT VOLUME 9.9 fl (7.5-11.1); PLATELET COUNT 265 10^3/uL (134-434); RBC 4.22 M/mm3 (3.60-5.2); RDW 15.3 % (11.6-15.6); WHITE BLOOD COUNT 3.3 K/mm3 (4.0-10.0)
[2022-08-19 12:07] LABS: ALBUMIN 3.7 g/dl (3.4-5.0); BLOOD UREA NITROGEN 30.3 mg/dL (7-18); CALCIUM 9.3 mg/dL (8.5-10.1)
[2022-08-19 12:10] LABS: BILIRUBIN,TOTAL 0.3 mg/dL (0.2-1); CREATININE 1.2 mg/dL (0.55-1.3); TOT PROT 7.5 g/dl (6.4-8.2)
[2022-08-19 12:48] LABS: SYPHILIS W/ RPR CONF NON-REACTIVE (NONREACTIVE)
[2022-08-19] MEDS: THIAMINE HCL 100 MG TABLET (FP) PO SCH (21:29)
[2022-08-19] MEDS: MELATONIN 5 MG TABLETS PO SCH (21:29)
[2022-08-19] MEDS: IBUPROFEN 600 MG TABLET (FP) PO PRN (21:30)
[2022-08-19] MEDS: traZODone HCL 50 MG TABLET (FP) PO SCH (21:58)
[2022-08-20] MEDS: LISINOPRIL 20 MG TABLET PO SCH (10:07)
[2022-08-20] MEDS: PRENATAL VITAMINS W/ FOLIC ACID TABLET (FP) PO SCH (10:07)
[2022-08-20] MEDS: risperiDONE 1 MG TABLET PO SCH ×2 (10:07→21:56)
[2022-08-20] MEDS: traZODone HCL 50 MG TABLET (FP) PO SCH (21:56)
[2022-08-20] MEDS: MELATONIN 5 MG TABLETS PO SCH (21:56)
[2022-08-20] MEDS: THIAMINE HCL 100 MG TABLET (FP) PO SCH (21:56)
[2022-08-21] MEDS: ALBUTEROL SO4 HFA INHALER IH PRN ×2 (03:21→09:15)
[2022-08-21] MEDS: LISINOPRIL 20 MG TABLET PO SCH ×2 (06:30→10:24)
[2022-08-21 08:07] VITALS: TEMP 96.3
[2022-08-21 09:13] VITALS: BP 157/80; PULSE 103
[2022-08-21] MEDS: risperiDONE 1 MG TABLET PO SCH (09:36)
[2022-08-21] MEDS: PRENATAL VITAMINS W/ FOLIC ACID TABLET (FP) PO SCH (09:36)
== END 2022-08-21 10:15 | disposition left against medical advice (07) | DRG 770 ==
LOC: YASAS 20:45 → Y5N 22:23
PROVIDERS: ADMIT Allergy & Immunology; ATTEND Psychiatry & Neurology Pain Medicine
PROC: HZ42ZZZ Group Counseling for Substance Abuse Treatment, Cognitive-Behavioral (ICD-10-PCS; principal; 2022-08-18)
DX: F10.20 Alcohol dependence, uncomplicated (principal); F14.20 Cocaine dependence, uncomplicated; F17.210 Nicotine dependence, cigarettes, uncomplicated; F25.9 Schizoaffective disorder, unspecified; F31.9 Bipolar disorder, unspecified; F19.24 Other psychoactive substance dependence with psychoactive substance-induced mood disorder; I10 Essential (primary) hypertension; J45.909 Unspecified asthma, uncomplicated; Z62.810 Personal history of physical and sexual abuse in childhood; Z91.410 Personal history of adult physical and sexual abuse; Z56.0 Unemployment, unspecified; Z59.00 Homelessness unspecified
CPT/HCPCS: 36415; 80053; 81003; 85027; 86780; 86803; 87635

== ENCOUNTER 2023-10-21 21:52 | Inpatient (IN) | payer OTHER ==
[2023-10-21 22:31] VITALS: BMI 19.7
[2023-10-21] MEDS ORDERED: BENZONATATE 200 MG CAPSULE PO PRN (22:51)
[2023-10-21] MEDS ORDERED: P-EPHED 60MG/TRIPROLIDI 2.5MG TABLET PO PRN (22:51)
[2023-10-21] MEDS ORDERED: NICOTINE POLACRILEX 2 MG LOZENGE BC PRN (22:51)
[2023-10-21] MEDS ORDERED: guaiFENesin 600 MG TABLET.ER (FP) PO PRN (22:51)
[2023-10-21] MEDS ORDERED: NALOXONE (NARCAN) HCL 4 MG/0.1 ML SPRAY NS PRN (22:51)
[2023-10-21] MEDS ORDERED: POLYETHYLENE GLYCOL (HEALTHYLAX) 3350 17 GM PACKET PO PRN (22:51)
[2023-10-21] MEDS ORDERED: NALOXONE HCL 0.4 MG/ML VIAL IM PRN (22:51)
[2023-10-21] MEDS ORDERED: MAGNESIUM HYDROX 2400MG/30ML ORAL SUSPENSION 30 ML CUP PO PRN (22:51)
[2023-10-21] MEDS ORDERED: IBUPROFEN 400 MG TABLET (FP) PO PRN (22:51)
[2023-10-21] MEDS ORDERED: BENZOCAINE/MENTHOL (CHLORASEPTIC ) LOZENGE MM PRN (22:51)
[2023-10-21] MEDS: LISINOPRIL 5 MG TABLET PO ONE (23:56)
[2023-10-21] MEDS: MELATONIN 5 MG TABLETS PO SCH (23:56)
[2023-10-22] MEDS: PRENATAL VITAMINS W/ FOLIC ACID TABLET (FP) PO SCH (10:24)
[2023-10-22] MEDS: TUBERCULIN PPD 5 TU/0.1ML SYRINGE (IN PATIENT USE ONLY) ID ONE (10:26)
[2023-10-22] MEDS: BUDESONIDE/FORMETEROL FUMARATE 80/4.5 mcg INHALER IH SCH (11:18)
[2023-10-22] MEDS: FERROUS GLUCONATE 324 MG TAB (FP) PO SCH (11:18)
[2023-10-22 11:41] LABS: HEMOGLOBIN 10.6 GM/dL (10.7-15.3); MCH 25.4 pg (25.7-33.7); MCHC 32.3 g/dl (32.0-36.0); MEAN CELL VOLUME 78.7 fl (80-96); MEAN PLT VOLUME 9.9 fl (7.5-11.1); PLATELET COUNT 233 10^3/uL (134-434); RBC 4.19 M/mm3 (3.60-5.2); RDW 15.7 % (11.6-15.6); WHITE BLOOD COUNT 4.3 K/mm3 (4.0-10.0)
[2023-10-22 11:43] LABS: CALCIUM 8.9 mg/dL (8.5-10.1)
[2023-10-22 11:44] LABS: ALBUMIN 3.3 g/dl (3.4-5.0); BLOOD UREA NITROGEN 30.8 mg/dL (7-18)
[2023-10-22 11:49] LABS: BILIRUBIN,TOTAL 0.4 mg/dL (0.2-1); TOT PROT 6.6 g/dl (6.4-8.2)
[2023-10-22 12:13] LABS: SYPHILIS W/ RPR CONF NON-REACTIVE (NONREACTIVE)
[2023-10-22] MEDS: GABAPENTIN 300 MG CAPSULE PO SCH (14:21)
[2023-10-22] MEDS: THIAMINE 100 MG TABLET PO SCH (21:13)
[2023-10-22] MEDS: QUEtiapine FUMARATE 100 MG TABLET (FP) PO SCH (21:14)
[2023-10-23] MEDS: LISINOPRIL 5 MG TABLET PO SCH (10:29)
[2023-10-23] MEDS: ACETAMINOPHEN 325 MG TABLET (FP) PO PRN (14:03)
[2023-10-24] MEDS: ALBUTEROL SO4 HFA INHALER IH PRN (20:14)
[2023-10-24] MEDS: traZODone HCL 50 MG TABLET (FP) PO SCH (22:06)
[2023-10-25] MEDS: hydrOXYzine PAMOATE 25 MG CAPSULE (FP) PO PRN (09:18)
[2023-10-25] MEDS ORDERED: LISINOPRIL 20 MG TABLET PO ONE (11:14)
[2023-10-26] MEDS: LISINOPRIL 20 MG TABLET PO SCH (10:21)
[2023-10-26 12:59] LABS: URINE APPEARANCE CLEAR; URINE BILIRUBIN NEGATIVE (NEGATIVE); URINE COLOR YELLOW; URINE GLUCOSE (UA) NEGATIVE (NEGATIVE); URINE KETONE NEGATIVE (NEGATIVE); URINE LEUK ESTERASE NEGATIVE (NEGATIVE); URINE NITRITE NEGATIVE (NEGATIVE); URINE PROTEIN NEGATIVE (NEGATIVE); URINE UROBILINOGEN 0.2 mg/dL (0.2-1.0)
[2023-10-26] MEDS: LOPERAMIDE HCL 2 MG CAPSULE PO PRN (18:45)
[2023-10-27] MEDS: risperiDONE 1 MG TABLET PO SCH (09:29)
[2023-10-27] MEDS: IBUPROFEN 600 MG TABLET (FP) PO PRN (13:45)
[2023-11-05] MEDS: NICOTINE POLACRILEX 2 MG GUM BUC PRN (10:41)
[2023-11-07] MEDS: VITAMINS A AND D TOPICAL OINTMENT TP SCH (18:50)
[2023-11-08] MEDS: MAG HYDROX/AL HYDROX/SIMETH 30 ML UNIT-DOSE CUP PO PRN (18:22)
[2023-11-09] MEDS ORDERED: VITAMINS A AND D TOPICAL OINTMENT TP PRN (09:46)
[2023-11-10 07:00] VITALS: RESP 18
[2023-11-11] MEDS: GABAPENTIN 300 MG CAPSULE PO SCH (14:51)
[2023-11-11] MEDS: amLODIPine BESYLATE 2.5 MG TABLET (FP) PO SCH (14:53)
[2023-11-11] MEDS: SIMETHICONE 80 MG TAB.CHEW (FP) PO PRN (14:55)
[2023-11-11] MEDS: QUEtiapine FUMARATE 50 MG TABLET PO SCH (21:13)
[2023-11-14 07:14] VITALS: TEMP 97.6
[2023-11-14 11:12] VITALS: BP 142/81; PULSE 92
== END 2023-11-14 14:15 | disposition home or self-care (01) | DRG 772 ==
LOC: YASAS 21:52 → Y3NR 23:10 → Y5N 10-25 13:25
PROVIDERS: ADMIT Allergy & Immunology; ATTEND Psychiatry & Neurology Pain Medicine
PROC: HZ42ZZZ Group Counseling for Substance Abuse Treatment, Cognitive-Behavioral (ICD-10-PCS; principal; 2023-10-21)
DX: F10.20 Alcohol dependence, uncomplicated (principal); F14.20 Cocaine dependence, uncomplicated; F17.210 Nicotine dependence, cigarettes, uncomplicated; F31.9 Bipolar disorder, unspecified; F25.9 Schizoaffective disorder, unspecified; F19.282 Other psychoactive substance dependence with psychoactive substance-induced sleep disorder; F19.24 Other psychoactive substance dependence with psychoactive substance-induced mood disorder; I10 Essential (primary) hypertension; J45.909 Unspecified asthma, uncomplicated; M54.50 Low back pain, unspecified; G89.29 Other chronic pain; R10.13 Epigastric pain; Z91.410 Personal history of adult physical and sexual abuse; Z59.02 Unsheltered homelessness
CPT/HCPCS: 36415; 80053; 80305; 80307; 81003; 85027; 86780; 86803; 87811; 93005; 93010

== ENCOUNTER 2024-04-20 14:37 | Inpatient (IN) | payer OTHER ==
[2024-04-20 15:39] VITALS: BMI 20.5
[2024-04-20] MEDS ORDERED: guaiFENesin 600 MG TABLET.ER (FP) PO PRN (16:15)
[2024-04-20] MEDS ORDERED: hydrOXYzine PAMOATE 25 MG CAPSULE (FP) PO PRN (16:15)
[2024-04-20] MEDS ORDERED: IBUPROFEN 600 MG TABLET (FP) PO PRN (16:15)
[2024-04-20] MEDS ORDERED: NALOXONE (NARCAN) HCL 4 MG/0.1 ML SPRAY NS PRN (16:15)
[2024-04-20] MEDS ORDERED: MAG HYDROX/AL HYDROX/SIMETH 30 ML UNIT-DOSE CUP PO PRN (16:15)
[2024-04-20] MEDS ORDERED: BENZONATATE 200 MG CAPSULE PO PRN (16:15)
[2024-04-20] MEDS ORDERED: POLYETHYLENE GLYCOL (HEALTHYLAX) 3350 17 GM PACKET PO PRN (16:15)
[2024-04-20] MEDS ORDERED: BENZOCAINE/MENTHOL (CHLORASEPTIC ) LOZENGE MM PRN (16:15)
[2024-04-20] MEDS ORDERED: IBUPROFEN 400 MG TABLET (FP) PO PRN (16:15)
[2024-04-20] MEDS ORDERED: LOPERAMIDE HCL 2 MG CAPSULE PO PRN (16:15)
[2024-04-20] MEDS ORDERED: MAGNESIUM HYDROX 2400MG/30ML ORAL SUSPENSION 30 ML CUP PO PRN (16:15)
[2024-04-20] MEDS ORDERED: ALBUTEROL SO4 HFA INHALER IH PRN (18:38)
[2024-04-20] MEDS: LIDOCAINE PATCH REMOVAL MC SCH (21:17)
[2024-04-20] MEDS: MELATONIN 5 MG TABLETS PO SCH (21:17)
[2024-04-20] MEDS: BUDESONIDE/FORMETEROL FUMARATE 160/4.5 mcg INHALER IH SCH (21:17)
[2024-04-20] MEDS: THIAMINE 100 MG TABLET PO SCH (21:17)
[2024-04-21 09:15] LABS: HEMATOCRIT 29.4 % (32.4-45.2); HEMOGLOBIN 9.1 GM/dL (10.7-15.3); MCH 24.6 pg (25.7-33.7); MEAN CELL VOLUME 79.2 fl (80-96); MEAN PLT VOLUME 9.3 fl (7.5-11.1); PLATELET COUNT 333 10^3/uL (134-434); RBC 3.71 M/mm3 (3.60-5.2); RDW 16.6 % (11.6-15.6); WHITE BLOOD COUNT 4.8 K/mm3 (4.0-10.0)
[2024-04-21 09:18] LABS: URINE APPEARANCE CLEAR; URINE BILIRUBIN NEGATIVE (NEGATIVE); URINE COLOR YELLOW; URINE GLUCOSE (UA) NEGATIVE (NEGATIVE); URINE KETONE NEGATIVE (NEGATIVE); URINE LEUK ESTERASE NEGATIVE (NEGATIVE); URINE NITRITE NEGATIVE (NEGATIVE); URINE PROTEIN NEGATIVE (NEGATIVE); URINE UROBILINOGEN 0.2 mg/dL (0.2-1.0)
[2024-04-21 09:48] LABS: POTASSIUM 3.8 mmol/L (3.5-5.1)
[2024-04-21] MEDS: PRENATAL VITAMINS W/ FOLIC ACID TABLET (FP) PO SCH (09:57)
[2024-04-21] MEDS: LIDOCAINE 5% TOPICAL PATCH TP SCH (09:58)
[2024-04-21] MEDS: AZITHROMYCIN 250 MG TABLET PO SCH (09:58)
[2024-04-21] MEDS: FOLIC ACID 1 MG TABLET (FP) PO SCH (09:58)
[2024-04-21] MEDS: amLODIPine BESYLATE 5 MG TABLET (FP) PO SCH (09:58)
[2024-04-21 10:02] LABS: CALCIUM 8.8 mg/dL (8.5-10.1)
[2024-04-21 10:03] LABS: ALBUMIN 3.1 g/dl (3.4-5.0); BLOOD UREA NITROGEN 22.9 mg/dL (7-18)
[2024-04-21 10:05] LABS: BILIRUBIN,TOTAL 0.4 mg/dL (0.2-1); TOT PROT 6.8 g/dl (6.4-8.2)
[2024-04-21] MEDS: FERROUS GLUCONATE 324 MG TAB (FP) PO SCH (15:12)
[2024-04-21] MEDS: QUEtiapine FUMARATE 100 MG TABLET (FP) PO SCH (21:32)
[2024-04-22] MEDS: ACETAMINOPHEN 325 MG TABLET (FP) PO PRN (21:05)
[2024-04-23 16:40] VITALS: BP 140/85; PULSE 99; RESP 18; TEMP 97.8
== END 2024-04-23 16:45 | disposition left against medical advice (07) | DRG 770 ==
LOC: YASAS 14:37 → Y5N 17:32
PROVIDERS: ADMIT Psychiatry & Neurology Pain Medicine; ATTEND Allergy & Immunology
PROC: HZ42ZZZ Group Counseling for Substance Abuse Treatment, Cognitive-Behavioral (ICD-10-PCS; principal; 2024-04-20)
DX: F10.20 Alcohol dependence, uncomplicated (principal); F14.20 Cocaine dependence, uncomplicated; F12.20 Cannabis dependence, uncomplicated; F17.210 Nicotine dependence, cigarettes, uncomplicated; F31.9 Bipolar disorder, unspecified; F19.282 Other psychoactive substance dependence with psychoactive substance-induced sleep disorder; I10 Essential (primary) hypertension; J44.9 Chronic obstructive pulmonary disease, unspecified; D64.9 Anemia, unspecified; J40 Bronchitis, not specified as acute or chronic; N39.498 Other specified urinary incontinence; Z62.810 Personal history of physical and sexual abuse in childhood; Z56.0 Unemployment, unspecified; Z59.00 Homelessness unspecified
CPT/HCPCS: 36415; 80053; 80305; 80307; 81003; 85027; 86780; 87811; 93005; 93010